=== PATIENT | female | born 1995 | race Caucasian/White ===

== ENCOUNTER 2016-09-18 22:57 | Emergency (ER) | payer MEDICAID ==
[2016-09-19] MEDS ORDERED: CEPHALEXIN 500 MG CAPSULE PO ONE (01:33)
--- NOTE | 2016-09-19 01:38 | ER Document Report ---
ED Skin Rash/Insect Bite/Abscs - General Chief Complaint: Insect Bite Stated Complaint: POSSIBLE SPIDER BITE Time Seen by Provider: 09/19/16 01:18 Mode of Arrival: Ambulatory Information source: Patient Notes: Patient is a 20-year-old female who is deaf who presents to the ER today for possible bug bite to her right wrist. Patient states that she noticed it last night but this morning she woke up and it was worse. She states that it is swollen, red, itchy and painful and that is making pain shoot up her arm past her elbow. She denies any numbness or tingling. TRAVEL OUTSIDE OF THE [place] IN LAST 30 DAYS: No - Related Data Allergies/Adverse Reactions: amoxicillin Allergy (Verified 09/18/16 23:21) Home Medications: Current Home Medications Norethindrone AC-Eth Estradiol [Junel 1.5 mg-30 Mcg Tablet] 1 each PO DAILY 03/27 [History] Past Medical History - General Information source: Patient - Social History Smoking Status: Never Smoker Family History: Reviewed & Not Pertinent Renal/ Medical History: Denies: Hx Peritoneal Dialysis Review of Systems - Review of Systems Constitutional: No symptoms reported EENT: No symptoms reported Cardiovascular: No symptoms reported Respiratory: No symptoms reported Gastrointestinal: No symptoms reported Genitourinary: No symptoms reported Female Genitourinary: No symptoms reported Musculoskeletal: No symptoms reported Skin: See HPI Hematologic/Lymphatic: No symptoms reported Neurological/Psychological: No symptoms reported Physical Exam - Vital signs Vitals: Temp Pulse Resp BP Pulse Ox 98.4 F 97 16 146/97 H 100 09/18/16 23:22 09/18/16 23:22 09/18/16 23:22 09/18/16 23:22 09/18/16 23:22 - Notes Notes: PHYSICAL EXAMINATION: GENERAL: Well-appearing and in no acute distress. HEAD: Atraumatic, normocephalic. EYES: Pupils equal round and reactive to light, extraocular movements intact, sclera anicteric, conjunctiva are normal. NECK: Normal range of motion, supple without lymphadenopathy LUNGS: CTAB and equal. No wheezes rales or rhonchi. HEART: Regular rate and rhythm without murmurs EXTREMITIES: Normal range of motion, no pitting edema. No cyanosis. NEUROLOGICAL: Cranial nerves grossly intact. Normal sensory/motor exams. PSYCH: Normal mood, normal affect. SKIN: Warm, Dry, normal turgor, erythematous area 2 cm in diameter to volar right wrist, tender to palpation, small papule in the center, no drainage, no induration or flucutance Course - Vital Signs Vital signs: Temp Pulse Resp BP Pulse Ox 98.1 F 85 16 129/94 H 99 09/19/16 02:10 09/19/16 02:10 09/19/16 02:10 09/19/16 02:10 09/19/16 02:10 Discharge - Discharge Clinical Impression: Infected insect bite Qualifiers: Encounter type: initial encounter Qualified Code(s): W57.XXXA - Bitten or stung by nonvenomous insect and other nonvenomous arthropods, initial encounter Condition: Stable Disposition: HOME, SELF-CARE Additional Instructions: Return immediately for any new or worsening symptoms. Follow up with primary care provider, call tomorrow to make followup appointment. Prescriptions: Cephalexin Monohydrate [Keflex 500 mg Capsule] 500 mg PO Q6H 7 Days
[2016-09-19 02:34] VITALS: BP 129/94
== END 2016-09-19 02:10 | disposition home or self-care (01) ==
LOC: ER 22:57
DX: S60.861A Insect bite (nonvenomous) of right wrist, initial encounter (principal); W57.XXXA Bitten or stung by nonvenomous insect and other nonvenomous arthropods, initial encounter; H91.90 Unspecified hearing loss, unspecified ear; Z88.0 Allergy status to penicillin
CPT/HCPCS: 99281

== ENCOUNTER 2019-08-24 16:13 | Outpatient (CLI) | payer MEDICARE, OTHER, MEDICAID ==
[2019-08-24 17:04] LABS: AMORPHOUS SEDIMENT,URINE TRACE /HPF; APPEARANCE,URINE CLOUDY; BILIRUBIN,URINE NEGATIVE (NEGATIVE); COLOR,URINE YELLOW; GLUCOSE, URINE NEGATIVE (NEGATIVE); KETONES,URINE NEGATIVE (NEGATIVE); LEUKOCYTE ESTERASE,URINE LARGE (NEGATIVE); NITRITE,URINE NEGATIVE (NEGATIVE); PROTEIN,URINE NEGATIVE (NEGATIVE); URINE SPECIFIC GRAVITY 1.004; UROBILINOGEN,URINE NEGATIVE mg/dL (<2.0)
[2019-08-24 17:05] LABS: ABSOLUTE EOSINOPHILS # (AUTO) 0.1 10^3/uL (0.0-0.6); ABSOLUTE LYMPHOCYTES (AUTO) 2.8 10^3/uL (0.5-4.7); ABSOLUTE MONOCYTES (AUTO) 0.7 10^3/uL (0.1-1.4); ABSOLUTE NEUT (AUTO) 8.6 10^3/uL (1.7-8.2); BASOPHILS % (AUTO) 0.3 % (0-2); HEMATOCRIT 32.9 % (36.0-47.0); HEMOGLOBIN 11.9 g/dL (12.0-15.5); LYMPHOCYTES % (AUTO) 22.7 % (13-45); MEAN CORPUSCULAR HEMOGLOBIN 31.5 pg (27.0-33.4); MEAN CORPUSCULAR HGB CONC 36.1 g/dL (32.0-36.0); MEAN CORPUSCULAR VOLUME 87 fl (80-97); MONOCYTES % (AUTO) 6.1 % (3-13); PLATELET COUNT 203 10^3/uL (150-450); RED BLOOD COUNT 3.78 10^6/uL (3.72-5.28); RED CELL DISTRIBUTION WIDTH 13.1 % (11.5-14.0); SEGMENTED NEUTROPHILS % (AUTO) 69.9 % (42-78); TOTAL CELLS COUNTED % (AUTO) 100 %; WHITE BLOOD COUNT 12.3 10^3/uL (4.0-10.5)
[2019-08-24 17:15] LABS: URINE AMPHETAMINES SCREEN NEGATIVE; URINE BARBITURATES SCREEN NEGATIVE; URINE BENZODIAZEPINES SCREEN NEGATIVE; URINE COCAINE SCREEN NEGATIVE; URINE MARIJUANA (THC) SCREEN NEGATIVE; URINE METHADONE SCREEN NEGATIVE; URINE PHENCYCLIDINE SCREEN NEGATIVE
[2019-08-24 17:18] LABS: ALBUMIN 3.7 g/dL (3.5-5.0); ALKALINE PHOSPHATASE 67 U/L (38-126); ANION GAP 10 (5-19); ASPARTATE AMINO TRANSFERASE 18 U/L (14-36); BILIRUBIN,TOTAL 0.7 mg/dL (0.2-1.3); BLOOD UREA NITROGEN 5 mg/dL (7-20); CALCIUM 9.8 mg/dL (8.4-10.2); CARBON DIOXIDE 17 mmol/L (22-30); CHLORIDE 109 mmol/L (98-107); GLUCOSE 78 mg/dL (75-110); POTASSIUM 3.4 mmol/L (3.6-5.0); TOTAL PROTEIN 6.8 g/dL (6.3-8.2); URIC ACID 4.7 mg/dL (2.5-6.2)
[2019-08-24 17:19] LABS: UR PRO/CREAT RATIO RESULT 0.5 mg/mg (0.0-0.2); URINE CREATININE 38.9 mg/dL (16-327); URINE PROTEIN 20.3 mg/dL (<12)
== END 2019-08-24 18:59 | disposition home or self-care (01) ==
LOC: LC 16:13
PROVIDERS: ATTEND Obstetrics & Gynecology
DX: O16.2 Unspecified maternal hypertension, second trimester (principal); Z3A.26 26 weeks gestation of pregnancy
CPT/HCPCS: 36415; 80053; 80307; 81001; 82570; 83615; 84156; 84550; 85025

== ENCOUNTER 2019-08-28 17:47 | Outpatient (CLI) | payer MEDICARE, OTHER, MEDICAID ==
[2019-08-28 18:47] LABS: APPEARANCE,URINE SLIGHTLY-CLOUDY; BILIRUBIN,URINE NEGATIVE (NEGATIVE); COLOR,URINE YELLOW; GLUCOSE, URINE NEGATIVE (NEGATIVE); KETONES,URINE NEGATIVE (NEGATIVE); LEUKOCYTE ESTERASE,URINE SMALL (NEGATIVE); NITRITE,URINE NEGATIVE (NEGATIVE); PROTEIN,URINE NEGATIVE (NEGATIVE); URINE SPECIFIC GRAVITY 1.004; UROBILINOGEN,URINE NEGATIVE mg/dL (<2.0)
[2019-08-28 18:51] LABS: URINE AMPHETAMINES SCREEN NEGATIVE; URINE BARBITURATES SCREEN NEGATIVE; URINE BENZODIAZEPINES SCREEN NEGATIVE; URINE COCAINE SCREEN NEGATIVE; URINE MARIJUANA (THC) SCREEN NEGATIVE; URINE METHADONE SCREEN NEGATIVE; URINE PHENCYCLIDINE SCREEN NEGATIVE
--- NOTE | 2019-08-28 19:11 | RADIOLOGY REPORT (SQ) ---
EXAM DESCRIPTION: U/S OB LIMITED IMAGES COMPLETED DATE/TIME: 08/28/2019 6:59 pm REASON FOR STUDY: decreased FM [id number] 26 WEEKS GESTATION OF COMPARISON: None. TECHNIQUE: Limited transabdominal grayscale ultrasound for evaluation of specific requested obstetri tomas parameters. LIMITATIONS: None. FINDINGS: EGA: 27 week 0 day. KASHIF: 11/27/2019. EFW: 1029 g. PERCENTILE: 51%. CERVICAL LENGTH: 3.9 cm. Closed. EDU: 8.2 cm. FHR: 135 beats per minute. PRESENTATION: Breech. PLACENTA: Anterior. No evidence of abruption. ANATOMY: Not assessed OTHER: No other significant findings. IMPRESSION: LIMITED OBSTETRICAL ULTRASOUND WITH MEASURED PARAMETERS DELINEATED ABOVE. OLIGOHYDRAMNIOS. NO EVIDENCE OF PLACENTAL ABRUPTION. Trimester of : Second trimester - 13 weeks 1 day to 27 weeks 6 days. TECHNICAL DOCUMENTATION: JOB ID: [id number] 2010 [employer]- All Rights Reserved Reading location - IP/workstation name: [email or web address]
== END 2019-08-28 20:55 | disposition home or self-care (01) ==
LOC: LC 17:47
PROVIDERS: ATTEND Obstetrics & Gynecology Gynecology
DX: O36.8120 Decreased fetal movements, second trimester, not applicable or unspecified (principal); Z3A.26 26 weeks gestation of pregnancy
CPT/HCPCS: 76815; 80307; 81001

== ENCOUNTER 2019-09-19 16:31 | Outpatient (CLI) | payer OTHER, MEDICARE, MEDICAID ==
[2019-09-19 19:05] LABS: APPEARANCE,URINE SLIGHTLY-CLOUDY; BILIRUBIN,URINE NEGATIVE (NEGATIVE); COLOR,URINE YELLOW; GLUCOSE, URINE NEGATIVE (NEGATIVE); KETONES,URINE NEGATIVE (NEGATIVE); LEUKOCYTE ESTERASE,URINE MODERATE (NEGATIVE); NITRITE,URINE NEGATIVE (NEGATIVE); PROTEIN,URINE NEGATIVE (NEGATIVE); URINE SPECIFIC GRAVITY 1.008; UROBILINOGEN,URINE NEGATIVE mg/dL (<2.0)
[2019-09-19 19:09] LABS: URINE AMPHETAMINES SCREEN NEGATIVE; URINE BARBITURATES SCREEN NEGATIVE; URINE BENZODIAZEPINES SCREEN NEGATIVE; URINE COCAINE SCREEN NEGATIVE; URINE MARIJUANA (THC) SCREEN NEGATIVE; URINE METHADONE SCREEN NEGATIVE; URINE PHENCYCLIDINE SCREEN NEGATIVE
--- NOTE | 2019-09-19 19:16 | RADIOLOGY REPORT (SQ) ---
EXAM DESCRIPTION: U/S OB LIMITED IMAGES COMPLETED DATE/TIME: 09/19/2019 5:56 pm REASON FOR STUDY: fluid, well being. 30 weeks gestation. G1. COMPARISON: None. TECHNIQUE: Limited transabdominal grayscale ultrasound for evaluation of specific requested obstetri tomas parameters. LIMITATIONS: None. FINDINGS: CERVICAL LENGTH: 4.3 cm Closed. EDU: 12.7 cm. FHR: 150 beats per minute. PRESENTATION: Breech PLACENTA: Anterior ANATOMY: Limited anatomic detail due to patient body habitus. OTHER: Corresponds to an ultrasound age of 30 weeks 0 days based on BPD, HC, AC, and FL. Estimated f etal weight is 1447 g +/-200 14 g. there is been expected interval growth. IMPRESSION: LIMITED OBSTETRICAL ULTRASOUND WITH MEASURED PARAMETERS DELINEATED ABOVE. Trimester of : Third trimester - 28 weeks to delivery. TECHNICAL DOCUMENTATION: JOB ID: [id number] 2010 [employer]- All Rights Reserved Reading location - IP/workstation name: [email or web address]
== END 2019-09-19 19:24 | disposition home or self-care (01) ==
LOC: LC 16:31
PROVIDERS: ATTEND Student in an Organized Health Care Education/Training Program
DX: O36.8130 Decreased fetal movements, third trimester, not applicable or unspecified (principal); Z3A.29 29 weeks gestation of pregnancy
CPT/HCPCS: 76815; 80307; 81001; 87086; 87088; 87186

== ENCOUNTER 2019-10-14 11:42 | Outpatient (CLI) | payer OTHER, MEDICARE, MEDICAID ==
[2019-10-14 13:09] LABS: APPEARANCE,URINE CLEAR; BILIRUBIN,URINE NEGATIVE (NEGATIVE); COLOR,URINE YELLOW; GLUCOSE, URINE NEGATIVE (NEGATIVE); KETONES,URINE NEGATIVE (NEGATIVE); LEUKOCYTE ESTERASE,URINE SMALL (NEGATIVE); NITRITE,URINE NEGATIVE (NEGATIVE); PROTEIN,URINE NEGATIVE (NEGATIVE); URINE SPECIFIC GRAVITY 1.004; UROBILINOGEN,URINE NEGATIVE mg/dL (<2.0)
[2019-10-14 13:12] LABS: HEMOGLOBIN 11.4 g/dL (12.0-15.5); MEAN CORPUSCULAR HEMOGLOBIN 32.3 pg (27.0-33.4); MEAN CORPUSCULAR HGB CONC 36.6 g/dL (32.0-36.0); MEAN CORPUSCULAR VOLUME 88 fl (80-97); PLATELET COUNT 157 10^3/uL (150-450); RED BLOOD COUNT 3.52 10^6/uL (3.72-5.28); RED CELL DISTRIBUTION WIDTH 13.7 % (11.5-14.0); WHITE BLOOD COUNT 8.9 10^3/uL (4.0-10.5)
[2019-10-14 13:25] LABS: URINE AMPHETAMINES SCREEN NEGATIVE; URINE BARBITURATES SCREEN NEGATIVE; URINE BENZODIAZEPINES SCREEN NEGATIVE; URINE COCAINE SCREEN NEGATIVE; URINE MARIJUANA (THC) SCREEN NEGATIVE; URINE METHADONE SCREEN NEGATIVE; URINE PHENCYCLIDINE SCREEN NEGATIVE
[2019-10-14 13:29] LABS: UR PRO/CREAT RATIO RESULT 0.5 mg/mg (0.0-0.2); URINE CREATININE 34.6 mg/dL (16-327)
[2019-10-14 13:41] LABS: ALBUMIN 2.9 g/dL (3.5-5.0); ALKALINE PHOSPHATASE 86 U/L (38-126); ANION GAP 8 (5-19); ASPARTATE AMINO TRANSFERASE 18 U/L (14-36); BLOOD UREA NITROGEN 5 mg/dL (7-20); CALCIUM 8.9 mg/dL (8.4-10.2); CARBON DIOXIDE 16 mmol/L (22-30); CHLORIDE 112 mmol/L (98-107); GLUCOSE 117 mg/dL (75-110); POTASSIUM 3.1 mmol/L (3.6-5.0); TOTAL PROTEIN 5.7 g/dL (6.3-8.2); URIC ACID 5.4 mg/dL (2.5-6.2)
--- NOTE | 2019-10-14 14:51 | Non Stress Test Report ---
Non Stress Test Datetime Report Generated by CPN: 10/14/2019 14:51 DEMOGRAPHIC EGA NST: 33.4 INDICATION Indication for Study (NST) Other: PIH workup for elevated BP in office VITAL SIGNS Temperature - NST: 98.8 Pulse - NST: 99 RESP - NST: 20 NBPSYS NST: 128 NBPDIA NST: 78 MONITORING Monitor Explained: Monitor Explained; Test Explained; Patient Verbalized Understanding Monitor Explained Other: pt is deaf and mother served as bb shot packer Time on Monitor: 10/14/2019 12:07 Time off Monitor: 10/14/2019 14:03 NST Duration: 116 NST INTERVENTIONS NST Interventions: PO Hydration Physician Notified NST: K. Beverly, CNM BABY A: [id number] BABY A Movement : Present Contraction Frequency : irritability FHR Baseline : 140 Accelerations : 15X15 Decelerations : None Variability : Moderate 6-25bpm NST Review: Meets Criteria for Reactive NST NST Review and Verified By : B Baidy RN NST Results: Reactive NST REPORT Report Trigger: Send Report
[2019-10-14] MEDS ORDERED: RINGERS SOLUTION,LACTATED 1,000 ML IV ONE (15:28)
== END 2019-10-14 14:20 | disposition home or self-care (01) ==
LOC: LC 11:42
PROVIDERS: ATTEND Obstetrics & Gynecology
DX: O14.93 Unspecified pre-eclampsia, third trimester (principal); O99.89 Other specified diseases and conditions complicating pregnancy, childbirth and the puerperium; H66.92 Otitis media, unspecified, left ear; Z3A.33 33 weeks gestation of pregnancy; Z88.1 Allergy status to other antibiotic agents
CPT/HCPCS: 36415; 80053; 80307; 81001; 82570; 83615; 84156; 84550; 85027

== ENCOUNTER 2019-11-03 11:50 | Inpatient (IN) | payer OTHER, MEDICARE, MEDICAID ==
[2019-11-03 13:00] LABS: APPEARANCE,URINE CLEAR; BILIRUBIN,URINE NEGATIVE (NEGATIVE); COLOR,URINE YELLOW; GLUCOSE, URINE NEGATIVE (NEGATIVE); KETONES,URINE NEGATIVE (NEGATIVE); LEUKOCYTE ESTERASE,URINE TRACE (NEGATIVE); NITRITE,URINE NEGATIVE (NEGATIVE); PROTEIN,URINE NEGATIVE (NEGATIVE); URINE SPECIFIC GRAVITY 1.004; UROBILINOGEN,URINE NEGATIVE mg/dL (<2.0)
[2019-11-03 13:06] LABS: ABSOLUTE EOSINOPHILS # (AUTO) 0.1 10^3/uL (0.0-0.6); ABSOLUTE MONOCYTES (AUTO) 0.8 10^3/uL (0.1-1.4); ABSOLUTE NEUT (AUTO) 8.6 10^3/uL (1.7-8.2); BASOPHILS % (AUTO) 0.2 % (0-2); EOSINOPHILS % (AUTO) 0.8 % (0-6); HEMATOCRIT 34.9 % (36.0-47.0); HEMOGLOBIN 12.5 g/dL (12.0-15.5); LYMPHOCYTES % (AUTO) 17.4 % (13-45); MEAN CORPUSCULAR HEMOGLOBIN 31.4 pg (27.0-33.4); MEAN CORPUSCULAR HGB CONC 35.7 g/dL (32.0-36.0); MEAN CORPUSCULAR VOLUME 88 fl (80-97); MONOCYTES % (AUTO) 6.5 % (3-13); PLATELET COUNT 168 10^3/uL (150-450); RED BLOOD COUNT 3.97 10^6/uL (3.72-5.28); SEGMENTED NEUTROPHILS % (AUTO) 75.1 % (42-78); TOTAL CELLS COUNTED % (AUTO) 100 %; WHITE BLOOD COUNT 11.5 10^3/uL (4.0-10.5)
[2019-11-03 13:24] LABS: URINE AMPHETAMINES SCREEN NEGATIVE; URINE BARBITURATES SCREEN NEGATIVE; URINE BENZODIAZEPINES SCREEN NEGATIVE; URINE COCAINE SCREEN NEGATIVE; URINE MARIJUANA (THC) SCREEN NEGATIVE; URINE METHADONE SCREEN NEGATIVE; URINE PHENCYCLIDINE SCREEN NEGATIVE
[2019-11-03 13:27] LABS: ALBUMIN 3.1 g/dL (3.5-5.0); ALKALINE PHOSPHATASE 107 U/L (38-126); ANION GAP 8 (5-19); ASPARTATE AMINO TRANSFERASE 18 U/L (14-36); BILIRUBIN,TOTAL 1.1 mg/dL (0.2-1.3); BLOOD UREA NITROGEN 4 mg/dL (7-20); CALCIUM 9.7 mg/dL (8.4-10.2); CARBON DIOXIDE 17 mmol/L (22-30); CHLORIDE 111 mmol/L (98-107); GLUCOSE 116 mg/dL (75-110); POTASSIUM 3.2 mmol/L (3.6-5.0); URIC ACID 5.9 mg/dL (2.5-6.2)
[2019-11-03] MEDS ORDERED: BETAMET ACET/BETAMET NA INJ 6 MG/1 ML ONE (14:47)
[2019-11-03] MEDS ORDERED: LABETALOL HCL 200 MG TABLET ONE (14:48)
[2019-11-03] MEDS ORDERED: PRENATAL VITAMIN W DHA CAPSULE PO ONE (17:52)
[2019-11-03] MEDS ORDERED: FERROUS SULFATE 325 MG TABLET PO ONE (17:52)
[2019-11-03] MEDS ORDERED: ASCORBIC ACID 500 MG TABLET PO ONE (18:15)
[2019-11-03] MEDS: LORATADINE 10 MG TABLET PO SCH (18:30)
--- NOTE | 2019-11-03 19:20 | PDOC H&P ---
History of Present Illness Admission Date/PCP: 11/03/19 14:52 MARIS CABRERA MD Patient complains of: Elevated blood pressure at the office: severe range per office staff History of Present Illness: MARIA ESTHER CAIN is a 23 year old female G1 at 36.3 weeks EGA by early US dating who was sent from the office for elevated blood pressure: severe range. She has been diagnosed with mild preeclampsia by mildly elevated blood pressures and 24 urine protein of 498. She reports feeling fine. Reports good FM. No ROSA, CP, SOB, RUQ pain, nausea/vomiting or vision changes. She denies VB or LOF Social History Information Source: Patient Lives with: Family Smoking Status: Never Smoker Electronic Cigarette use?: No Frequency of Alcohol Use: None Drugs: None Family History Family History: Reviewed & Not Pertinent Parental Family History Reviewed: Yes Children Family History Reviewed: Yes Sibling(s) Family History Reviewed.: Yes Medication/Allergy Home Medications: Docusate Sodium [Colace 100 mg Capsule] 1 tab PO DAILY PRN 08/24/19 Pnv,Calcium 72/Iron/Folic Acid [ Plus Tablet] 1 tab PO DAILY 08/24/19 Ascorbic Acid [Vitamin C] 1 cap PO DAILY 09/19/19 Iron 1 cap DAILY 09/19/19 Pantoprazole Sodium [Protonix] 1 cap DAILY 09/19/19 Allergies/Adverse Reactions: amoxicillin Allergy (Verified 11/03/19 12:08) Physical Exam - Physical Exam Vital Signs: Intake & Output 11/02/19 11/03/19 11/04/19 06:59 06:59 06:59 Weight 128.1 kg General appearance: PRESENT: no acute distress, cooperative Ear exam: PRESENT: normal external ear exam Respiratory exam: PRESENT: clear to auscultation ana Cardiovascular exam: PRESENT: RRR, +S1, +S2 Pulses: PRESENT: normal dorsalis pedis pul, +2 pedal pulses bilateral GI/Abdominal exam: PRESENT: normal bowel sounds, soft. ABSENT: distended, guarding, mass, organolmegaly, rebound, tenderness Extremities exam: PRESENT: full ROM, other - no clonus. Reflexes 1/4 bilateral lower extremities.. ABSENT: calf tenderness, clubbing, pedal edema Neurological exam: PRESENT: alert, awake, oriented to person, oriented to place, oriented to time, oriented to situation, CN II-XII grossly intact. ABSENT: motor sensory deficit Psychiatric exam: PRESENT: anxious, appropriate affect Skin exam: PRESENT: dry, intact, warm. ABSENT: cyanosis, rash Result Laboratory Results: 11/03/19 12:55 11/03/19 12:55 11/03/19 11/03/19 11/03/19 12:10 12:55 12:55 WBC 11.5 H RBC 3.97 Hgb 12.5 Hct 34.9 L MCV 88 MCH 31.4 MCHC 35.7 RDW 14.0 Plt Count 168 Seg Neutrophils % 75.1 Sodium 136.0 L Potassium 3.2 L Chloride 111 H Carbon Dioxide 17 L Anion Gap 8 BUN 4 L Creatinine 0.62 Est GFR ( Amer) > 60 Glucose 116 H Uric Acid 5.9 Calcium 9.7 Total Bilirubin 1.1 AST 18 Alkaline Phosphatase 107 Total Protein 6.0 L Albumin 3.1 L Urine Color YELLOW Urine Appearance CLEAR Urine pH 7.0 Ur Specific [place] 1.004 Urine Protein NEGATIVE Urine Glucose (UA) NEGATIVE Urine Ketones NEGATIVE Urine Blood NEGATIVE Urine Nitrite NEGATIVE Ur Leukocyte Esterase TRACE H Urine WBC (Auto) 3 Urine RBC (Auto) 1 Assessment & Plan - Diagnosis (1) Pre-eclampsia Qualifiers: Trimester: third trimester Qualified Code(s): O14.93 - Unspecified pre- eclampsia, third trimester Is this a current diagnosis for this admission?: Yes - Time Time Spent: 30 to 50 Minutes Medications reviewed and adjusted accordingly: Yes Disposition: Elevated blood pressure. Otherwsie stable . - Plan Summary Plan Summary: 23 yo G1 at 36.3 wks EGA with mild preeclampsia, possibly progressing to severe -Admit to LDR -CEFM -Obtain IV access. -VS Q 1 hour. If >160 systolic or >110 diastolic call provider. B/P here is 164/100. WIll begin Labetolol 200mg BID. -Give BMZ x2 -PIH labs ordered and normal. Repeat in am -Since asymptomatic and normal labs, will monitor while steriods given. WIll begin PO antihypertensives and monitor B/P. Begin mag sulfate IV if sustained severe range B/Ps. If sustained severe range b/p then earlier IOL before 37 wks may be necessary. Otherwise will plan on IOL at 37 weeks. -May have regular diet. -Also called out after initial assessment with ear pain on left. She has hx of ear infection this ear and states pain started yesterday. Pain anterior to left ear and deep in ear per patient. Injected capillaries seen on left TM. Cobblestoning seen in back of throat. Will treat with loratidine 10mg daily and antibiotic
[2019-11-03] MEDS: CEFUROXIME 250 MG TABLET PO SCH (21:53)
[2019-11-04 06:53] LABS: ABSOLUTE MONOCYTES (AUTO) 0.7 10^3/uL (0.1-1.4); ABSOLUTE NEUT (AUTO) 10.9 10^3/uL (1.7-8.2); BASOPHILS % (AUTO) 0.1 % (0-2); EOSINOPHILS % (AUTO) 0.1 % (0-6); HEMATOCRIT 34.6 % (36.0-47.0); HEMOGLOBIN 12.1 g/dL (12.0-15.5); LYMPHOCYTES % (AUTO) 14.8 % (13-45); MEAN CORPUSCULAR HEMOGLOBIN 31.2 pg (27.0-33.4); MEAN CORPUSCULAR HGB CONC 35.1 g/dL (32.0-36.0); MEAN CORPUSCULAR VOLUME 89 fl (80-97); MONOCYTES % (AUTO) 5.1 % (3-13); PLATELET COUNT 185 10^3/uL (150-450); RED BLOOD COUNT 3.88 10^6/uL (3.72-5.28); RED CELL DISTRIBUTION WIDTH 14.3 % (11.5-14.0); SEGMENTED NEUTROPHILS % (AUTO) 79.9 % (42-78); TOTAL CELLS COUNTED % (AUTO) 100 %; WHITE BLOOD COUNT 13.6 10^3/uL (4.0-10.5)
[2019-11-04 07:12] LABS: ALBUMIN 3.2 g/dL (3.5-5.0); ALKALINE PHOSPHATASE 113 U/L (38-126); ANION GAP 9 (5-19); ASPARTATE AMINO TRANSFERASE 19 U/L (14-36); BLOOD UREA NITROGEN 7 mg/dL (7-20); CALCIUM 9.6 mg/dL (8.4-10.2); CARBON DIOXIDE 18 mmol/L (22-30); CHLORIDE 109 mmol/L (98-107); GLUCOSE 128 mg/dL (75-110); POTASSIUM 3.6 mmol/L (3.6-5.0); URIC ACID 6.2 mg/dL (2.5-6.2)
--- NOTE | 2019-11-04 09:09 | Non Stress Test Report ---
Non Stress Test Datetime Report Generated by CPN: 11/04/2019 09:09 DEMOGRAPHIC Test Number: 2 EGA NST: 36.4 INDICATION Indication for Study (NST) Other: Pre Eclampcia VITAL SIGNS Temperature - NST: 98.8 Pulse - NST: 116 RESP - NST: 20 NBPSYS NST: 157 NBPDIA NST: 83 MONITORING Monitor Explained: Monitor Explained; Test Explained; Patient Verbalized Understanding Time on Monitor: 11/04/2019 08:38 Time off Monitor: 11/04/2019 09:04 NST Duration: 26 NST INTERVENTIONS NST Interventions: PO Hydration; Reposition Patient Physician Notified NST: Dr. Steven BABY A: [id number] BABY A Movement : Present Contraction Frequency : Irregular FHR Baseline : 135 Accelerations : 15X15 Decelerations : None Variability : Moderate 6-25bpm NST Review: Meets Criteria for Reactive NST NST Review and Verified By : Cindy Pace RN NST Results: Reactive NST REPORT Report Trigger: Send Report
[2019-11-04] MEDS ORDERED: LABETALOL HCL 200 MG TABLET PO SCH (10:00)
[2019-11-04] MEDS ORDERED: LABETALOL HCL 200 MG TABLET ONE (10:00)
[2019-11-04] MEDS: LORATADINE 10 MG TABLET PO SCH (10:11)
[2019-11-04] MEDS: CEFUROXIME 250 MG TABLET PO SCH (10:32)
[2019-11-04 11:45] LABS: HEMOGLOBIN 11.5 g/dL (12.0-15.5); MEAN CORPUSCULAR HEMOGLOBIN 31.2 pg (27.0-33.4); MEAN CORPUSCULAR HGB CONC 34.9 g/dL (32.0-36.0); MEAN CORPUSCULAR VOLUME 90 fl (80-97); PLATELET COUNT 164 10^3/uL (150-450); RED BLOOD COUNT 3.69 10^6/uL (3.72-5.28); WHITE BLOOD COUNT 13.9 10^3/uL (4.0-10.5)
--- NOTE | 2019-11-04 12:55 | Admission Physical ---
Datetime Report Generated by CPN: 11/04/2019 12:54 CURRENT ADMISSION Chief Complaint: Other Chief Complaint Other: Elevated BP in the office, Pre-eclampsia work up Admit Impression : , Intrauterine ; No Active Labor Admit Impression- Other: 36 wks w/ Pre-eclampsia for IOL evaluation Admit Plan: Observation/Evaluation ALLERGIES Medication Allergies: Yes Medication Allergies: amoxicillin (11/03/2019) Latex: No Latex Allergies Food Allergies: none Environmental Allergies: none OBSTETRICAL HISTORY EDC: 11/28/2019 00:00 : 1 Para: 0 Term: 0 : 0 SAB: 0 IAB: 0 Ectopic: 0 Livin Cesareans: 0 VBACs: 0 Multiple Births: 0 Rh Sensitization: No CUCA: No Uterine Anomaly: No Hx Previous C/S: No Hx Loss/Stillborn: No Hx : No Depression/PP Depression: No Post Hemorrhage: No Obstetrical History Comments: G1- current MEDICAL HISTORY Medical History Comments: migraines, spondylolisthesis, gallbladder removal, obesity, bilateral cochlear implant INFECTIOUS HISTORY Gonorrhea: No Genital Herpes: No Chlamydia: No Tuberculosis: No Syphilis: No Hepatitis: No HIV/AIDS Exposure: No Rash or Viral Illness: No HPV: No PHYSICAL EXAM General: Normal HEENT: Normal Neurologic: Normal Thyroid: Normal Heart: Normal Lungs: Normal Breast: Normal Back: Normal Abdomen: Normal Genitourinary Exam: Normal Extremities: Normal DTRs: Normal Pelvic Type: Adequate Vital Signs: Reviewed FETUS A EGA: 36.4 Monitoring: External US Admit Comment: at 36.3 wks w/ Pre-eclampsia, sent over from A office on 11/03/2019 for evaluation if IOL is indicated. Pt is deaf and interpretor was present .FOB also deaf but able to read lips. Betamethasone #1 dose given 11/03/19 and will give second dose today. GBS negative. Dr Harris has seen patient and plan of care has been discussed with them. INFORMED CONSENT Assignment: Kalani Harris MD Signature: with User ID: Lincoln : with User ID: Lincoln
[2019-11-04] MEDS ORDERED: BETAMET ACET/BETAMET NA INJ 6 MG/1 ML ONE (14:19)
[2019-11-04] MEDS ORDERED: BETAMET ACET/BETAMET NA INJ 6 MG/1 ML IM ONE (14:51)
--- NOTE | 2019-11-04 15:01 | PDOC DISCHARGE SUMMARY ---
Impression - Admit/DC Date/PCP Admission Date/Primary Care Provider: 11/04/19 10:55 MARIS CABRERA MD Discharge Date: 11/04/19 - 36 wks, Doing well, s/p Betamethasone x 2. Plan for IOL Thursday night 11/05 - Additional Information Resuscitation Status: Full Code Discharge Diet: As Tolerated Discharge Activity: Balance Activity w/Rest, No Driving, No Lifting Over 10 Pounds Referrals: MARIS CABRERA MD [Primary Care Provider] - Home Medications: Docusate Sodium [Colace 100 mg Capsule] 1 tab PO DAILY PRN 08/24/19 Pnv,Calcium 72/Iron/Folic Acid [ Plus Tablet] 1 tab PO DAILY 08/24/19 Ascorbic Acid [Vitamin C] 1 cap PO DAILY 09/19/19 Iron 1 cap DAILY 09/19/19 Pantoprazole Sodium [Protonix] 1 cap DAILY 09/19/19 Results Laboratory Results: WBC 13.9 10^3/uL (4.0-10.5) H 11/04/19 11:27 RBC 3.69 10^6/uL (3.72-5.28) L 11/04/19 11:27 Hgb 11.5 g/dL (12.0-15.5) L 11/04/19 11:27 Hct 33.0 % (36.0-47.0) L 11/04/19 11:27 MCV 90 fl (80-97) 11/04/19 11:27 MCH 31.2 pg (27.0-33.4) 11/04/19 11:27 MCHC 34.9 g/dL (32.0-36.0) 11/04/19 11:27 RDW 14.0 % (11.5-14.0) 11/04/19 11:27 Plt Count 164 10^3/uL (150-450) 11/04/19 11:27 Lymph % (Auto) 14.8 % (13-45) 11/04/19 06:34 [place] % (Auto) 5.1 % (3-13) 11/04/19 06:34 Eos % (Auto) 0.1 % (0-6) 11/04/19 06:34 Baso % (Auto) 0.1 % (0-2) 11/04/19 06:34 Absolute Neuts (auto) 10.9 10^3/uL (1.7-8.2) H 11/04/19 06:34 Absolute Lymphs (auto) 2.0 10^3/uL (0.5-4.7) 11/04/19 06:34 Absolute Monos (auto) 0.7 10^3/uL (0.1-1.4) 11/04/19 06:34 Absolute Eos (auto) 0.0 10^3/uL (0.0-0.6) 11/04/19 06:34 Absolute Basos (auto) 0.0 10^3/uL (0.0-0.2) 11/04/19 06:34 Seg Neutrophils % 79.9 % (42-78) H 11/04/19 06:34 Sodium 135.7 mmol/L (137-145) L 11/04/19 06:34 Potassium 3.6 mmol/L (3.6-5.0) 11/04/19 06:34 Chloride 109 mmol/L (98-107) H 11/04/19 06:34 Carbon Dioxide 18 mmol/L (22-30) L 11/04/19 06:34 Anion Gap 9 (5-19) 11/04/19 06:34 BUN 7 mg/dL (7-20) 11/04/19 06:34 Creatinine 0.70 mg/dL (0.52-1.25) 11/04/19 06:34 Est GFR ( Amer) > 60 (>60) 11/04/19 06:34 Est GFR (MDRD) Non-Af > 60 (>60) 11/04/19 06:34 Glucose 128 mg/dL (75-110) H 11/04/19 06:34 Lactic Acid 1.9 mmol/L (0.7-2.1) 11/04/19 06:34 Uric Acid 6.2 mg/dL (2.5-6.2) 11/04/19 06:34 Calcium 9.6 mg/dL (8.4-10.2) 11/04/19 06:34 Total Bilirubin 1.0 mg/dL (0.2-1.3) 11/04/19 06:34 Direct Bilirubin 0.0 mg/dL (0.0-0.4) 11/04/19 06:34 Neonat Total Bilirubin Not Reportable 11/04/19 06:34 Neonat Direct Bilirubin Not Reportable 11/04/19 06:34 Neonat Indirect Bili Not Reportable 11/04/19 06:34 AST 19 U/L (14-36) 11/04/19 06:34 ALT 12 U/L (<35) 11/04/19 06:34 Alkaline Phosphatase 113 U/L (38-126) 11/04/19 06:34 Lactate Dehydrogenase 162 U/L (120-246) 11/03/19 12:55 Total Protein 6.0 g/dL (6.3-8.2) L 11/04/19 06:34 Albumin 3.2 g/dL (3.5-5.0) L 11/04/19 06:34 Urine Color YELLOW 11/03/19 12:10 Urine Appearance CLEAR 11/03/19 12:10 Urine pH 7.0 (5.0-9.0) 11/03/19 12:10 Ur Specific [place] 1.004 11/03/19 12:10 Urine Protein NEGATIVE mg/dL (NEGATIVE) 11/03/19 12:10 Urine Glucose (UA) NEGATIVE mg/dL (NEGATIVE) 11/03/19 12:10 Urine Ketones NEGATIVE mg/dL (NEGATIVE) 11/03/19 12:10 Urine Blood NEGATIVE (NEGATIVE) 11/03/19 12:10 Urine Nitrite NEGATIVE (NEGATIVE) 11/03/19 12:10 Urine Bilirubin NEGATIVE (NEGATIVE) 11/03/19 12:10 Urine Urobilinogen NEGATIVE mg/dL (<2.0) 11/03/19 12:10 Ur Leukocyte Esterase TRACE (NEGATIVE) H 11/03/19 12:10 Urine WBC (Auto) 3 /HPF 11/03/19 12:10 Urine RBC (Auto) 1 /HPF 11/03/19 12:10 Urine Bacteria (Auto) TRACE /HPF 11/03/19 12:10 Squamous Epi Cells Auto 2 /HPF 11/03/19 12:10 Urine Mucus (Auto) RARE /LPF 11/03/19 12:10 Urine Ascorbic Acid NEGATIVE (NEGATIVE) 11/03/19 12:10 Urine Opiates Screen NEGATIVE 11/03/19 12:10 Urine Methadone Screen NEGATIVE 11/03/19 12:10 Ur Barbiturates Screen NEGATIVE 11/03/19 12:10 Ur Phencyclidine Scrn NEGATIVE 11/03/19 12:10 Ur Amphetamines Screen NEGATIVE 11/03/19 12:10 U Benzodiazepines Scrn NEGATIVE 11/03/19 12:10 Urine Cocaine Screen NEGATIVE 11/03/19 12:10 U Marijuana (THC) Screen NEGATIVE 11/03/19 12:10 Plan Health Concerns: Pre-eclampsia at 36 wks, BP precautions reviewed Plan of Treatment: return to [facility] on Thursday for cervical ripening Time Spent: Less than 30 Minutes
--- NOTE | 2019-11-04 15:01 | Non Stress Test Report ---
Non Stress Test Datetime Report Generated by CPN: 11/04/2019 15:01 DEMOGRAPHIC EGA NST: 36.4 INDICATION Indication for Study (NST) Other: Steven MD orders VITAL SIGNS Temperature - NST: 98.2 Pulse - NST: 115 RESP - NST: 18 NBPSYS NST: 137 NBPDIA NST: 69 MONITORING Monitor Explained: Monitor Explained; Test Explained; Patient Verbalized Understanding Time on Monitor: 11/04/2019 14:15 Time off Monitor: 11/04/2019 14:38 NST Duration: 23 NST INTERVENTIONS NST Interventions: PO Hydration; Reposition Patient Physician Notified NST: N. Wang, CNM BABY A Movement : Present Contraction Frequency : irritability noted FHR Baseline : 135 Accelerations : 15X15 Decelerations : None Variability : Moderate 6-25bpm NST Review: Meets Criteria for Reactive NST NST Review and Verified By : Cindy Pace RN NST Results: Reactive NST REPORT Report Trigger: Send Report
[2019-11-04] MEDS ORDERED: PANTOPRAZOLE SODIUM 40 MG TABLET.DR PO SCH (17:00)
[2019-11-04] MEDS ORDERED: PRENATAL VITAMIN W DHA CAPSULE PO SCH (18:15)
[2019-11-04] MEDS ORDERED: FERROUS SULFATE 325 MG TABLET PO SCH (18:15)
== END 2019-11-04 15:06 | disposition home or self-care (01) | DRG 998 ==
LOC: LC 11:50 → LR 14:52 → OBSVTOIN 11-04 10:55
PROVIDERS: ADMIT Obstetrics & Gynecology; ATTEND Obstetrics & Gynecology
DX: O14.04 Mild to moderate pre-eclampsia, complicating childbirth (principal); H91.93 Unspecified hearing loss, bilateral; O26.893 Other specified pregnancy related conditions, third trimester; O99.213 Obesity complicating pregnancy, third trimester; Z88.1 Allergy status to other antibiotic agents; Z3A.36 36 weeks gestation of pregnancy
CPT/HCPCS: 36415; 80053; 80307; 81001; 83605; 83615; 84550; 85025; J0702; J3490

== ENCOUNTER 2019-11-06 20:33 | Inpatient (IN) | payer OTHER, MEDICARE, MEDICAID ==
[2019-11-06] MEDS ORDERED: RINGERS SOLUTION,LACTATED 1,000 ML IV PRN (20:43)
[2019-11-06 21:20] LABS: ABSOLUTE EOSINOPHILS # (AUTO) 0.1 10^3/uL (0.0-0.6); ABSOLUTE LYMPHOCYTES (AUTO) 2.8 10^3/uL (0.5-4.7); ABSOLUTE MONOCYTES (AUTO) 1.3 10^3/uL (0.1-1.4); ABSOLUTE NEUT (AUTO) 7.6 10^3/uL (1.7-8.2); BASOPHILS % (AUTO) 0.2 % (0-2); EOSINOPHILS % (AUTO) 0.4 % (0-6); LYMPHOCYTES % (AUTO) 23.4 % (13-45); MEAN CORPUSCULAR HEMOGLOBIN 31.5 pg (27.0-33.4); MEAN CORPUSCULAR HGB CONC 35.4 g/dL (32.0-36.0); MEAN CORPUSCULAR VOLUME 89 fl (80-97); PLATELET COUNT 185 10^3/uL (150-450); RED BLOOD COUNT 3.81 10^6/uL (3.72-5.28); RED CELL DISTRIBUTION WIDTH 14.2 % (11.5-14.0); TOTAL CELLS COUNTED % (AUTO) 100 %; WHITE BLOOD COUNT 11.8 10^3/uL (4.0-10.5)
[2019-11-06] MEDS ORDERED: RINGERS SOLUTION,LACTATED 1,000 ML IV ONE (21:30)
[2019-11-06 21:32] LABS: APPEARANCE,URINE CLEAR; BILIRUBIN,URINE NEGATIVE (NEGATIVE); COLOR,URINE STRAW; GLUCOSE, URINE NEGATIVE (NEGATIVE); KETONES,URINE NEGATIVE (NEGATIVE); LEUKOCYTE ESTERASE,URINE NEGATIVE (NEGATIVE); NITRITE,URINE NEGATIVE (NEGATIVE); PROTEIN,URINE NEGATIVE (NEGATIVE); URINE SPECIFIC GRAVITY 1.002; UROBILINOGEN,URINE NEGATIVE mg/dL (<2.0)
[2019-11-06 21:48] LABS: URINE AMPHETAMINES SCREEN NEGATIVE; URINE BARBITURATES SCREEN NEGATIVE; URINE BENZODIAZEPINES SCREEN NEGATIVE; URINE COCAINE SCREEN NEGATIVE; URINE MARIJUANA (THC) SCREEN NEGATIVE; URINE METHADONE SCREEN NEGATIVE; URINE PHENCYCLIDINE SCREEN NEGATIVE
[2019-11-06] MEDS ORDERED: ZOLPIDEM TARTRATE 5 MG TABLET PO PRN (21:52)
[2019-11-06] MEDS ORDERED: ACETAMINOPHEN 325 MG TABLET PO PRN (21:52)
[2019-11-06] MEDS ORDERED: MAG HYDROX/AL HYDROX/SIMETH SUSP 30 ML UDCUP PO PRN (21:52)
[2019-11-06] MEDS ORDERED: LABETALOL HCL 200 MG TABLET ONE (22:16)
[2019-11-06] MEDS ORDERED: MISOPROSTOL 0.2 MG TABLET ONE (22:16)
[2019-11-06] MEDS ORDERED: OXYTOCIN 10 UNIT/ML VIAL ONE (22:16)
[2019-11-06] MEDS ORDERED: DINOPROSTONE 10 MG VAGINAL INSERT.SR ONE (22:17)
[2019-11-06] MEDS ORDERED: LIDOCAINE 1% INJ-PF (10 MG/ML) 30 ML SDV ONE (22:17)
[2019-11-06] MEDS ORDERED: OXYTOCIN/0.9 % SODIUM CHLORIDE 30 UNIT/500 ML RTUINJ ONE (22:17)
[2019-11-06] MEDS ORDERED: DINOPROSTONE 10 MG VAGINAL INSERT.SR PV ONE (22:30)
[2019-11-06] MEDS ORDERED: CEFUROXIME 500 MG TABLET ONE (22:36)
[2019-11-07] MEDS ORDERED: ZOLPIDEM TARTRATE 5 MG TABLET ONE (00:32)
[2019-11-07] MEDS ORDERED: NALBUPHINE HCL INJ 10 MG/1 ML AMPULE ONE (03:01)
[2019-11-07] MEDS ORDERED: PROMETHAZINE HCL INJ 25 MG/1 ML VIAL ONE (03:01)
--- NOTE | 2019-11-07 06:07 | Admission Physical ---
Datetime Report Generated by CPN: 11/07/2019 06:07 CURRENT ADMISSION Chief Complaint: Signs/Symptoms Gestational HTN Chief Complaint Other: Elevated BP in the office, Pre-eclampsia work up Indication for Induction: PreEclampsia Admit Impression : , Intrauterine Admit Impression- Other: 36 wks w/ Pre-eclampsia for IOL evaluation Admit Plan: Admit to Unit; Initiate Labor Protocol ALLERGIES Medication Allergies: Yes Medication Allergies: amoxicillin (11/03/2019) Latex: No Latex Allergies Food Allergies: none Environmental Allergies: none OBSTETRICAL HISTORY EDC: 11/28/2019 00:00 : 1 Para: 0 Term: 0 : 0 SAB: 0 IAB: 0 Ectopic: 0 Livin Cesareans: 0 VBACs: 0 Multiple Births: 0 Gestational Diabetes: No Rh Sensitization: No Incompetent Cervix: No CUCA: No Infertility: No ART Treatment: No Uterine Anomaly: No IUGR: No Hx Previous C/S: No Macrosomia: No Hx Loss/Stillborn: No PIH: Yes Hx : No Placenta Previa/Abruption: No Depression/PP Depression: No PTL/PROM: No Post Hemorrhage: No Current Procedures: Ultrasound; NST Obstetrical History Comments: G1- current SEE RECORDS Alcohol: No Marijuana : No Cocaine: No Other Illicit Drugs: No Cigarettes: Former Smoker. [id number] MEDICAL HISTORY Diabetes: No Blood Transfusion: No Pulmonary Disease (Asthma, TB): No Breast Disease: No Hypertension: Yes Personal Banker Surgery: No Heart Disease: No Hosp/Surgery: No Autoimmune Disorder: No Anesthetic Complications: No Kidney Disease: No Abnormal Pap Smear: No Neuro/Epilepsy: No Psychiatric Disorders: No Other Medical Diseases: No Hepatitis/Liver Disease: No Significant Family History: No Varicosities/Phlebitis: No Trauma/Violence : No Thyroid Dysfunction: No Medical History Comments: migraines, spondylolisthesis, gallbladder removal, obesity, bilateral cochlear implant, pt states doctors told her she has PCOS INFECTIOUS HISTORY Gonorrhea: No Genital Herpes: No Chlamydia: No Tuberculosis: No Syphilis: No Hepatitis: No HIV/AIDS Exposure: No Rash or Viral Illness: No HPV: No PHYSICAL EXAM General: Normal HEENT: Normal Neurologic: Normal Thyroid: Normal Heart: Normal Lungs: Normal Breast: Deferred Back: Normal Abdomen: Normal Genitourinary Exam: Normal Extremities: Normal DTRs: Normal Pelvic Type: Adequate Vital Signs: Reviewed FETUS A EGA: 37.0 Monitoring: External US Admit Comment: at 36.3 wks w/ Pre-eclampsia, sent over from A office on 11/03/2019 for evaluation if IOL is indicated. Pt is deaf and interpretor was present .FOB also deaf but able to read lips. Betamethasone #1 dose given 11/03/19 and will give second dose today. GBS negative. Dr Harris has seen patient and plan of care has been discussed with them. PLANS FOR LABOR AND DELIVERY Labor and Delivery: None Pain Management: Medications; Epidural Feeding Preference: Both Benefit of Breast Feed Discussed: Yes Circumcision: N/A INFORMED CONSENT Assignment: Kalani Harris MD Signature: with User ID: [email or web address] : with User ID: [email or web address]
[2019-11-07] MEDS ORDERED: LABETALOL HCL 200 MG TABLET ONE (08:32)
[2019-11-07] MEDS: LABETALOL HCL 200 MG TABLET PO SCH ×3 (08:35→21:39)
[2019-11-07 08:52] LABS: HEMATOCRIT 34.9 % (36.0-47.0); MEAN CORPUSCULAR HEMOGLOBIN 30.9 pg (27.0-33.4); MEAN CORPUSCULAR HGB CONC 34.4 g/dL (32.0-36.0); MEAN CORPUSCULAR VOLUME 90 fl (80-97); PLATELET COUNT 167 10^3/uL (150-450); RED BLOOD COUNT 3.87 10^6/uL (3.72-5.28); RED CELL DISTRIBUTION WIDTH 14.3 % (11.5-14.0)
[2019-11-07 09:13] LABS: ALBUMIN 3.3 g/dL (3.5-5.0); ALKALINE PHOSPHATASE 112 U/L (38-126); ANION GAP 7 (5-19); ASPARTATE AMINO TRANSFERASE 20 U/L (14-36); BLOOD UREA NITROGEN 7 mg/dL (7-20); CALCIUM 8.9 mg/dL (8.4-10.2); CARBON DIOXIDE 20 mmol/L (22-30); CHLORIDE 109 mmol/L (98-107); GLUCOSE 100 mg/dL (75-110); POTASSIUM 3.2 mmol/L (3.6-5.0); TOTAL PROTEIN 5.9 g/dL (6.3-8.2); URIC ACID 6.4 mg/dL (2.5-6.2)
[2019-11-07] MEDS ORDERED: BUPIVACAINE HCL 0.25 % INJ/PF (2.5 MG/1 ML) 30 ML VIAL ONE (10:09)
[2019-11-07] MEDS ORDERED: EPHEDRINE SULFATE INJ 50 MG/1 ML AMPULE ONE ×2 (10:09→14:11)
[2019-11-07] MEDS ORDERED: FENTANYL/BUPIVACAINE/NS/PF 300 MCG/150 ML RTUINJ EPI ONE (10:09)
[2019-11-07] MEDS ORDERED: FENTANYL CITRATE INJ/PF 100 MCG/2 ML AMPUL ONE ×2 (10:27→14:11)
[2019-11-07] MEDS: CEFUROXIME 500 MG TABLET PO SCH ×3 (11:45→19:31)
[2019-11-07] MEDS ORDERED: CITRIC ACID/SODIUM CITRATE ORAL SOLN 15 ML UDCUP ONE (14:10)
[2019-11-07] MEDS ORDERED: CEFAZOLIN 1 GM/D5W RTU 2 GM/100 ML RTUPB IV ONE (14:10)
[2019-11-07] MEDS ORDERED: OXYTOCIN 10 UNIT/ML VIAL ONE ×2 (14:11→15:05)
[2019-11-07] MEDS ORDERED: MIDAZOLAM 2 MG/2 ML INJ ONE (14:11)
[2019-11-07] MEDS ORDERED: ACETAMINOPHEN 1,000 MG/100 ML RTUPB IV ONE (14:11)
[2019-11-07] MEDS ORDERED: KETOROLAC TROMETHAMINE INJ/PF 30 MG/1 ML SDV ONE (14:11)
[2019-11-07] MEDS ORDERED: HYDROMORPHONE HCL INJ/PF 2 MG/ML AMPULE ONE (14:12)
[2019-11-07] MEDS ORDERED: LIDOCAINE 2% INJ-PF (20 MG/ML) 10 ML AMPUL ONE (14:12)
[2019-11-07] MEDS ORDERED: ONDANSETRON HCL INJ/PF 4 MG/2 ML SDV ONE (14:12)
[2019-11-07] MEDS ORDERED: CARBOPROST TROMETHAMINE INJ 250 MCG/1 ML AMPULE ONE (14:16)
[2019-11-07] MEDS ORDERED: MISOPROSTOL 0.2 MG TABLET ONE (14:16)
[2019-11-07] MEDS ORDERED: OXYTOCIN/0.9 % SODIUM CHLORIDE 30 UNIT/500 ML RTUINJ ONE (14:16)
[2019-11-07] MEDS ORDERED: CEFAZOLIN SODIUM 2 GM in DEXTROSE 5%-WATER 50 ML IV PRN (14:17)
[2019-11-07] MEDS ORDERED: MEPERIDINE HCL/PF INJ 25 MG/1 ML DISP.SYRIN IV PRN (15:17)
[2019-11-07] MEDS ORDERED: PROMETHAZINE HCL INJ 25 MG/1 ML VIAL IV PRN ×2 (15:17→16:12)
[2019-11-07] MEDS ORDERED: MORPHINE SULFATE 10 MG/ML INJ IV PRN ×2 (15:17→16:12)
[2019-11-07] MEDS ORDERED: ONDANSETRON HCL INJ/PF 4 MG/2 ML SDV IV PRN (15:17)
[2019-11-07] MEDS ORDERED: DIPHENHYDRAMINE HCL 50 MG/ML VIAL IV PRN (15:17)
[2019-11-07] MEDS ORDERED: FENTANYL CITRATE INJ/PF 100 MCG/2 ML AMPUL IV PRN ×3 (15:17)
[2019-11-07] MEDS ORDERED: OXYCODONE-ACETAMINOPHEN 5-325 MG TABLET PO PRN ×3 (15:17→16:12)
[2019-11-07] MEDS ORDERED: PHENYLEPHRINE HCL INJ/PF 10 MG/1 ML SDV ONE (15:56)
[2019-11-07] MEDS ORDERED: ACETAMINOPHEN 325 MG TABLET PO PRN (16:12)
[2019-11-07] MEDS ORDERED: OXYTOCIN/0.9 % SODIUM CHLORIDE 30 UNIT/500 ML RTUINJ IV PRN (16:12)
[2019-11-07] MEDS ORDERED: RINGERS SOLUTION,LACTATED 1,000 ML IV PRN (16:12)
[2019-11-07] MEDS ORDERED: MEASLES,MUMPS&RUBELLA VACC/PF 0.5 ML VIAL SUBCUT PRN (16:12)
[2019-11-07] MEDS ORDERED: SIMETHICONE 80 MG TAB.CHEW PO PRN (16:12)
[2019-11-07] MEDS ORDERED: ACETAMINOPHEN 1,000 MG/100 ML RTUPB IV PRN (16:12)
[2019-11-07] MEDS ORDERED: DIPH/PERTUSS(ACELL)/TETANUS VAC/PF 0.5 ML SYR (>=10YO) IM PRN (16:12)
[2019-11-07] MEDS ORDERED: HYDRALAZINE HCL INJ/PF 20 MG/1 ML SDV IV ONE (16:21)
[2019-11-07] MEDS ORDERED: HYDRALAZINE HCL INJ/PF 20 MG/1 ML SDV ONE (16:23)
--- NOTE | 2019-11-07 16:54 | Operative Report ---
Operative Report DATE OF SURGERY: 11/07/19 PREOPERATIVE DIAGNOSIS: IUP at 37 weeks and 0 days, preeclampsia, nonreassuring heart tones, persistent category 2 strip POSTOPERATIVE DIAGNOSIS: Same OPERATION: Primary low transverse hysterotomy section SURGEON: TARUN URBAN ANESTHESIA: Epidural TISSUE REMOVED OR ALTERED: Placenta COMPLICATIONS: None ESTIMATED BLOOD LOSS: 1200 cc INTRAOPERATIVE FINDINGS: Female cephalic presentation, APGARS 5 and 8. nuchal cord x 1. Dark blood behind the placenta suggestive of possibly an abruption beginning PROCEDURE: PROCEDURE IN DETAIL: The patient was taken to the operating room, prepared and draped in a normal sterile fashion in a supine position with a leftward tilt. A transverse skin incision was made with a scalpel and carried through to the underlying layer of fascia with the same scalpel. The fascia was excised in the midline and extended laterally with [place]. The fascia was then dissected from the rectus muscle sharply with [place] and the rectus muscle was divided and the peritoneal cavity was entered sharply with the same Metzenbaum. With good visualization of the bladder and the uterus the bladder blade was inserted. The hysterotomy was nicked with a scalpel and extended laterally with surgeon finger fraction. The infant was then delivered atraumatically. The nuchal cord was reduced. the nose and mouth were suctioned with a suction bulb, the cord was clamped and cut and handed off to awaiting pediatricians. Cord blood was collected. The placenta was removed manually with the above findings noted . the uterus was exteriorized and cleared of clots and debris. The hysterotomy was closed with 0 Monocryl in a running, locked fashion. A second layer of the same suture was used to imbricate to ensure hemostasis. The uterus was injected with 20 mg of Pitocin IM secondary to uterine atony . the uterus was returned to the abdomen and peritoneal cavity was cleared of clots and debris. The rectus muscle and peritoneum were repaired with mattress stitch of 2-0 Chromic. Freighter vessels were ligated with remaining 2-0 chromic on the rectus muscle. the fascia was closed with 0-Vicryl. The subcutaneous layer was closed with plain catgut and the skin was closed with 4-0 Vicryl. The patient tolerated the procedure well. Sponge, lap, and needle counts correct x2 and the patient was taken to recovery in stable condition.
[2019-11-07] MEDS ORDERED: OXYCODONE-ACETAMINOPHEN 5-325 MG TABLET ONE (17:07)
[2019-11-07] MEDS: DOCUSATE SODIUM 100 MG CAPSULE PO SCH (19:31)
[2019-11-07] MEDS: KETOROLAC TROMETHAMINE INJ/PF 30 MG/1 ML SDV IV SCH (21:42)
[2019-11-08 00:18] LABS: HEMATOCRIT 26.8 % (36.0-47.0); MEAN CORPUSCULAR HEMOGLOBIN 31.3 pg (27.0-33.4); MEAN CORPUSCULAR HGB CONC 34.4 g/dL (32.0-36.0); MEAN CORPUSCULAR VOLUME 91 fl (80-97); PLATELET COUNT 156 10^3/uL (150-450); RED BLOOD COUNT 2.95 10^6/uL (3.72-5.28); WHITE BLOOD COUNT 15.8 10^3/uL (4.0-10.5)
[2019-11-08 00:27] LABS: HEMOGLOBIN 9.2 g/dL (12.0-15.5)
[2019-11-08] MEDS: KETOROLAC TROMETHAMINE INJ/PF 30 MG/1 ML SDV IV SCH (05:13)
[2019-11-08 06:49] LABS: HEMATOCRIT 22.8 % (36.0-47.0); MEAN CORPUSCULAR HGB CONC 34.6 g/dL (32.0-36.0); MEAN CORPUSCULAR VOLUME 90 fl (80-97); PLATELET COUNT 140 10^3/uL (150-450); RED BLOOD COUNT 2.54 10^6/uL (3.72-5.28); RED CELL DISTRIBUTION WIDTH 14.3 % (11.5-14.0); WHITE BLOOD COUNT 11.7 10^3/uL (4.0-10.5)
[2019-11-08 06:57] LABS: HEMOGLOBIN 7.9 g/dL (12.0-15.5)
--- NOTE | 2019-11-08 08:18 | PDOC PROGRESS REPORT ---
Subjective Progress Note for:: 11/08/19 Subjective:: doing well. normal postoperative pain. she denies dizziness, blurry vision or other preE symptoms. discussed with patient regarding her decreased Hgb which I was expecting due to her QBL at her c/section. Patient is asymptomoatic and would like to see how she feels today as she starts moving more to decide if she would have blood transfusion. She is agreeable to starting iron and vitamin C. Reason For Visit: , PRE-CLAMPSIA, NONREASSURING HEART Physical Exam - Physical Exam Vital Signs: Temp Pulse Resp BP Pulse Ox 98.6 F 100 16 128/67 H 98 11/08/19 07:56 11/08/19 07:56 11/08/19 07:56 11/08/19 07:56 11/08/19 07:56 Intake & Output 11/07/19 11/08/19 11/09/19 06:59 06:59 06:59 Output Total 1350 Balance -1350 Weight 130.4 kg General appearance: PRESENT: no acute distress, cooperative GI/Abdominal exam: PRESENT: soft, tenderness - appropriate pain for post operative period. dressing is c/d/intact with no erythema or edema Result Laboratory Results: 11/08/19 06:28 11/07/19 08:42 11/07/19 11/07/19 11/07/19 08:42 08:42 20:04 WBC 16.0 H 15.8 H RBC 3.87 2.95 L Hgb 12.0 9.2 L D Hct 34.9 L 26.8 L MCV 90 91 MCH 30.9 31.3 MCHC 34.4 34.4 RDW 14.3 H 14.0 Plt Count 167 156 Sodium 135.8 L Potassium 3.2 L Chloride 109 H Carbon Dioxide 20 L Anion Gap 7 BUN 7 Creatinine 0.53 Est GFR ( Amer) > 60 Glucose 100 Uric Acid 6.4 H Calcium 8.9 Total Bilirubin 1.0 AST 20 Alkaline Phosphatase 112 Total Protein 5.9 L Albumin 3.3 L 11/08/19 06:28 WBC 11.7 H RBC 2.54 L Hgb 7.9 L Hct 22.8 L MCV 90 MCH 31.0 MCHC 34.6 RDW 14.3 H Plt Count 140 L Sodium Potassium Chloride Carbon Dioxide Anion Gap BUN Creatinine Est GFR ( Amer) Glucose Uric Acid Calcium Total Bilirubin AST Alkaline Phosphatase Total Protein Albumin Assessment & Plan - Diagnosis (1) delivery delivered Is this a current diagnosis for this admission?: Yes (2) Non-reassuring electronic monitoring tracing Is this a current diagnosis for this admission?: Yes (3) Deafness Qualifiers: Laterality: bilateral Qualified Code(s): H91.93 - Unspecified hearing loss, bilateral Is this a current diagnosis for this admission?: Yes (4) Pre-eclampsia Qualifiers: Trimester: third trimester Is this a current diagnosis for this admission?: Yes (5) Anemia Qualifiers: Other causes of anemia: acute posthemorrhagic Is this a current diagnosis for this admission?: Yes - Time Time Spent with patient: Less than 15 minutes Smoking Cessation Education: over 10 minutes Medications reviewed and adjusted accordingly: Yes Anticipated discharge: Home Within: within 24 hours - Inpatient Certification Based on my medical assessment, after consideration of the patient's comorbiditi es, presenting symptoms, or acuity I expect that the services needed warrant INPATIENT care.: Yes I certify that my determination is in accordance with my understanding of [facility]'s requirements for reasonable and necessary INPATIENT services [42 CFR 412.3e].: Yes Medical Necessity: Need Close Monitoring Due to Risk of Patient Decompensation, Need for Pain Control - Plan Summary Plan Summary: interpretor to be brought in for rounds and discussion. plan for patient to go home in morning if doing well. she has been insracted to contact nurse and provider if she becomes more symptomatic with her anemia
[2019-11-08] MEDS: OXYCODONE-ACETAMINOPHEN 5-325 MG TABLET PO PRN ×2 (08:41→18:51)
[2019-11-08] MEDS: DOCUSATE SODIUM 100 MG CAPSULE PO SCH ×2 (09:39→18:50)
[2019-11-08] MEDS: CEFUROXIME 500 MG TABLET PO SCH ×2 (09:39→18:50)
[2019-11-08] MEDS: PRENATAL VITAMIN W DHA CAPSULE PO SCH (09:39)
[2019-11-08] MEDS: LABETALOL HCL 200 MG TABLET PO SCH ×2 (09:39→22:30)
[2019-11-08] MEDS: ASCORBIC ACID 500 MG TABLET PO SCH (09:39)
[2019-11-08] MEDS: FERROUS SULFATE 325 MG TABLET PO SCH ×2 (09:39→18:50)
[2019-11-08] MEDS: IBUPROFEN 800 MG TABLET PO SCH ×2 (12:36→18:50)
[2019-11-09] MEDS: IBUPROFEN 800 MG TABLET PO SCH ×3 (00:08→11:05)
--- NOTE | 2019-11-09 07:44 | Delivery Summary ---
Del Sum A-C Datetime Report Generated by CPN: 11/09/2019 07:44 DELIVERY PERSONNEL DELIVERY PERSONNEL: [id number] Delivery Doctor:: Kalani Harris MD WOOD ROOM SUPERVISOR:: Felicia Bashir WOOD ROOM SUPERVISOR Diesel Inspector:: Chelsea Graff RN Neonatal Nurse Practitioner:: PAVEL Goldberg Hide Shaker/STUDIO DATA ANALYST: Mabel George CST Hide Shaker/STUDIO DATA ANALYST: Meghan Andrews CST Additional Personnel: : Penny Centeno RN MATERNAL INFORMATION Delivery Anesthesia: Epidural Medications During Delivery: Cytotec Hemabate IM Pitocin Medications After Delivery: Pitocin Bolus-Please Comment; Pitocin 30 Units in 500ml NS/D5W Meds After Delivery Comment: See Anesthesia record LABOR SUMMARY EDC: 11/28/2019 00:00 No. Babies in Womb: 1 Attempted: No Labor Anesthesia: Epidural LABOR INFORMATION Reason for Induction: Pre-Eclampsia Cervical Ripening Agents: Cervidil Cervical Ripening Agents: Cervidil Oxytocin: Induction Group B Beta Strep: negative Antibiotics # of Doses: n/a Steroids Given: Full Course; > 24 Hours before Delivery Reason Steroids Not Administered: Not Applicable MEMBRANES Membranes Rupture Method: Artificial Rupture of Membranes: 11/07/2019 11:28 Length of Rupture (hr): 3.47 Amniotic Fluid Color: Clear Amniotic Fluid Amount: Scant Amniotic Fluid Odor: None STAGES OF LABOR Stage 3 hr: 0 Stage 3 min: 2 VAGINAL DELIVERY Episiotomy: None Laceration #1: None Laceration Extension #1: N/A Laceration Repair: Not Applicable Sponge Count Correct: N/A Sharps Count Correct: N/A CSECTION DELIVERY Primary Indication: Nonreassuring Status CSection Urgency: Non-Scheduled CSection Incidence: Primary Labor: Labor Elective: Elective CSection Incision: Lower Uterine Transverse BABY A INFORMATION Delivery Date/Time: 11/07/2019 14:56 Method of Delivery: Nurse Controlled Delivery: No Born in Route : No : N/A Forceps: N/A Vacuum Extraction: N/A Shoulder Dystocia : No PRESENTATION/POSITION BABY A Presentation: Cephalic Cephalic Presentation: Vertex Vertex Position: n/a Breech Presentation: N/A PLACENTA INFORMATION BABY A Placenta Delivery Time : 11/07/2019 14:58 Placenta Method of Delivery: Manual Removal Placenta Status: Delivered SCORES BABY A Heart Rate 1 min: >100 bpm Resp Effort 1 min: Slow, Irregular Reflex Irritability 1 min: Grimace Muscle Tone 1 min: Some Flexion of Extremities Color 1 min: Blue/Pale Resuscitation Effort 1 min: Tactile Stimulation SCORE 1 MIN: 5 Heart Rate 5 min: >100 bpm Resp Effort 5 min: Good Cry Reflex Irritability 5 min: Cough or Sneeze or Pulls Away Muscle Tone 5 min: Some Flexion of Extremities Color 5 min: Body Bowlegs, Extremities Blue Resuscitation Effort 5 min: Tactile Stimulation; Oxygen; PPV/NCPAP SCORE 5 MIN: 8 INFANT INFORMATION BABY A Gestational Age at Delivery: 37.0 Gestational Status: Early Term- 37- 38.6 Weeks Outcome : Liveborn Infant Condition : Stable Infant Sex: Female IDENTIFICATION BABY A Infant Verification Date/Time: 11/07/2019 15:49 ID Band Number: [id number] Mother's Name Verified: Yes RN Verifying : Ankita Gardner RNC Additional Verifying Personnel: Joselyn Jimenez RN WEIGHT/LENGTH BABY A Birthweight (gm): 3280 Weight (lb): 7 Weight (oz): 4 Length (in): 20.50 Infant Length (cm): 52.07 CORD INFORMATION BABY A No. Cord Vessels: 3 Nuchal Cord : Around Neck x1, Loose Cord Blood Taken: Yes-For Eval (Mom's Blood Type - or O+) Infant Suction: Mouth ASSESSMENT BABY A Complications: Multiple Late Decels Physical Findings- Other: see nursery record Immunochemist/ALS Called : No Infant Care By: Eric Summers [employer]ER Transferred To: Nursery BABY B INFORMATION : N/A
[2019-11-09] MEDS: LABETALOL HCL 200 MG TABLET PO SCH (10:01)
[2019-11-09] MEDS: DOCUSATE SODIUM 100 MG CAPSULE PO SCH (10:01)
[2019-11-09] MEDS: CEFUROXIME 500 MG TABLET PO SCH (10:01)
[2019-11-09] MEDS: ASCORBIC ACID 500 MG TABLET PO SCH (10:01)
[2019-11-09] MEDS: PRENATAL VITAMIN W DHA CAPSULE PO SCH (10:01)
[2019-11-09] MEDS: FERROUS SULFATE 325 MG TABLET PO SCH (10:02)
[2019-11-09] MEDS: OXYCODONE-ACETAMINOPHEN 5-325 MG TABLET PO PRN (11:05)
--- NOTE | 2019-11-09 11:38 | PDOC PROGRESS REPORT ---
Subjective-OB Progress Note for:: 11/09/19 Subjective: Doing well, interpreter translator at BS as well as mother and hsb, denies pain, walking, eating , bottle feeding, Physical Exam (OB) Vital Signs: Temp Pulse Resp BP Pulse Ox 98.5 F 103 H 18 138/72 H 100 11/09/19 07:25 11/09/19 07:25 11/09/19 07:25 11/09/19 07:25 11/09/19 07:25 Intake & Output 11/08/19 11/09/19 11/10/19 06:59 06:59 06:59 Intake Total 450 Output Total 1350 300 Balance -1350 -300 450 - PIH/Pre-Eclampsia DTR's: 1 + Clonus: Negative Headache: Absent Epigastric Pain: No Visual Changes: No - Dressing Removed: Yes Incision: Dressing Closure Type: op site - Lochia Lochia Amount: Scant < 10 ml Lochia Color: Rubra/Red - Abdomen Description: Soft Hernia Present: No Fundal Description: Firm, Midline Fundal Height: u/u - u/2 > 4/u*- Describe: n/a Objective-Diagnostic Laboratory: 11/08/19 06:28 11/07/19 08:42 Assessment and Plan(PN) - Assessment and Plan (1) Anemia Qualifiers: Other causes of anemia: acute posthemorrhagic Is this a current diagnosis for this admission?: Yes (2) Non-reassuring electronic monitoring tracing Is this a current diagnosis for this admission?: Yes (3) delivery delivered Is this a current diagnosis for this admission?: Yes (4) Deafness Qualifiers: Laterality: bilateral Qualified Code(s): H91.93 - Unspecified hearing loss, bilateral Is this a current diagnosis for this admission?: Yes (5) Pre-eclampsia Qualifiers: Trimester: third trimester Is this a current diagnosis for this admission?: Yes - Time Spent with Patient Time with patient: Less than 15 minutes Medications reviewed and adjusted accordingly: Yes - Disposition Anticipated Discharge: Home Within: within 24 hours
--- NOTE | 2019-11-09 11:50 | PDOC DISCHARGE SUMMARY ---
Impression - Admit/DC Date/PCP Admission Date/Primary Care Provider: 11/06/19 20:33 TARUN URBAN MD Discharge Date: 11/09/19 - Discharge Diagnosis (1) Anemia Is this a current diagnosis for this admission?: Yes (2) Non-reassuring electronic monitoring tracing Is this a current diagnosis for this admission?: Yes (3) delivery delivered Is this a current diagnosis for this admission?: Yes (4) Deafness Is this a current diagnosis for this admission?: Yes (5) Pre-eclampsia Is this a current diagnosis for this admission?: Yes - Additional Information Resuscitation Status: Full Code Discharge Diet: As Tolerated Referrals: TARUN URBAN MD [Primary Care Provider] - 11/14/19 1:30 pm ([facility] 1 week) Prescriptions: Oxycodone HCl/Acetaminophen [Percocet 5-325 mg Tablet] 1 tab PO Q4HP PRN #20 tablet PRN Reason: Ferrous Sulfate [Feosol 325 mg Tablet] 325 mg PO BID #60 tablet Ibuprofen [Motrin 800 mg Tablet] 800 mg PO Q6 #30 tablet Labetalol HCl [Normodyne 200 mg Tablet] 200 mg PO Q12 #60 tablet Home Medications: Pnv,Calcium 72/Iron/Folic Acid [ Plus Tablet] 1 tab PO DAILY 08/24/19 Iron 1 cap DAILY 09/19/19 Pantoprazole Sodium [Protonix] 1 cap DAILY 09/19/19 Labetalol HCl [Normodyne 200 mg Tablet] 200 mg PO Q12 #60 tablet 11/04/19 Loratadine 10 mg PO DAILY #30 tab.rapdis 11/04/19 Ferrous Sulfate [Feosol 325 mg Tablet] 325 mg PO BID #60 tablet 11/09/19 Ibuprofen [Motrin 800 mg Tablet] 800 mg PO Q6 #30 tablet 11/09/19 Labetalol HCl [Normodyne 200 mg Tablet] 200 mg PO Q12 #60 tablet 11/09/19 Oxycodone HCl/Acetaminophen [Percocet 5-325 mg Tablet] 1 tab PO Q4HP PRN #20 tablet 11/09/19 HPI Gestational Age: 37.1 Reason(s) for Admission: Induction of Labor Admission Note: Pre-E Procedures: NST, Ultrasound Intrapartum Procedure(s): : Low Cervical, Transverse Intrapartum Procedure Note: multiple lates, PP hemorrhage Hospital Course Hospital Course: no complications routine post op, anemis Results Laboratory Results: WBC 11.7 10^3/uL (4.0-10.5) H 11/08/19 06:28 RBC 2.54 10^6/uL (3.72-5.28) L 11/08/19 06:28 Hgb 7.9 g/dL (12.0-15.5) L 11/08/19 06:28 Hct 22.8 % (36.0-47.0) L 11/08/19 06:28 MCV 90 fl (80-97) 11/08/19 06: MCH 31.0 pg (27.0-33.4) 11/08/19 06: MCHC 34.6 g/dL (32.0-36.0) 11/08/19 06: RDW 14.3 % (11.5-14.0) H 11/08/19 06:28 Plt Count 140 10^3/uL (150-450) L 11/08/19 06: Lymph % (Auto) 23.4 % (13-45) 11/06/19 21:05 Citrus % (Auto) 11.0 % (3-13) 11/06/19 21:05 Eos % (Auto) 0.4 % (0-6) 11/06/19 21:05 Baso % (Auto) 0.2 % (0-2) 11/06/19 21:05 Absolute Neuts (auto) 7.6 10^3/uL (1.7-8.2) 11/06/19 21:05 Absolute Lymphs (auto) 2.8 10^3/uL (0.5-4.7) 11/06/19 21:05 Absolute Monos (auto) 1.3 10^3/uL (0.1-1.4) 11/06/19 21:05 Absolute Eos (auto) 0.1 10^3/uL (0.0-0.6) 11/06/19 21:05 Absolute Basos (auto) 0.0 10^3/uL (0.0-0.2) 11/06/19 21:05 Seg Neutrophils % 65.0 % (42-78) 11/06/19 21:05 Sodium 135.8 mmol/L (137-145) L 11/07/19 08:42 Potassium 3.2 mmol/L (3.6-5.0) L 11/07/19 08:42 Chloride 109 mmol/L (98-107) H 11/07/19 08:42 Carbon Dioxide 20 mmol/L (22-30) L 11/07/19 08:42 Anion Gap 7 (5-19) 11/07/19 08:42 BUN 7 mg/dL (7-20) 11/07/19 08:42 Creatinine 0.53 mg/dL (0.52-1.25) 11/07/19 08:42 Est GFR ( Amer) > 60 (>60) 11/07/19 08:42 Est GFR (MDRD) Non-Af > 60 (>60) 11/07/19 08:42 Glucose 100 mg/dL (75-110) 11/07/19 08:42 Uric Acid 6.4 mg/dL (2.5-6.2) H 11/07/19 08:42 Calcium 8.9 mg/dL (8.4-10.2) 11/07/19 08:42 Total Bilirubin 1.0 mg/dL (0.2-1.3) 11/07/19 08:42 Direct Bilirubin 0.0 mg/dL (0.0-0.4) 11/07/19 08:42 Neonat Total Bilirubin Not Reportable 11/07/19 08:42 Neonat Direct Bilirubin Not Reportable 11/07/19 08:42 Neonat Indirect Bili Not Reportable 11/07/19 08:42 AST 20 U/L (14-36) 11/07/19 08:42 ALT 11 U/L (<35) 11/07/19 08:42 Alkaline Phosphatase 112 U/L (38-126) 11/07/19 08:42 Lactate Dehydrogenase 187 U/L (120-246) 11/07/19 08:42 Total Protein 5.9 g/dL (6.3-8.2) L 11/07/19 08:42 Albumin 3.3 g/dL (3.5-5.0) L 11/07/19 08:42 Urine Color STRAW 11/06/19 20:51 Urine Appearance CLEAR 11/06/19 20:51 Urine pH 8.0 (5.0-9.0) 11/06/19 20:51 Ur Specific [place] 1.002 11/06/19 20:51 Urine Protein NEGATIVE mg/dL (NEGATIVE) 11/06/19 20:51 Urine Glucose (UA) NEGATIVE mg/dL (NEGATIVE) 11/06/19 20:51 Urine Ketones NEGATIVE mg/dL (NEGATIVE) 11/06/19 20:51 Urine Blood NEGATIVE (NEGATIVE) 11/06/19 20:51 Urine Nitrite NEGATIVE (NEGATIVE) 11/06/19 20:51 Urine Bilirubin NEGATIVE (NEGATIVE) 11/06/19 20:51 Urine Urobilinogen NEGATIVE mg/dL (<2.0) 11/06/19 20:51 Ur Leukocyte Esterase NEGATIVE (NEGATIVE) 11/06/19 20:51 Urine Ascorbic Acid NEGATIVE (NEGATIVE) 11/06/19 20:51 Urine Opiates Screen NEGATIVE 11/06/19 20:51 Urine Methadone Screen NEGATIVE 11/06/19 20:51 Ur Barbiturates Screen NEGATIVE 11/06/19 20:51 Ur Phencyclidine Scrn NEGATIVE 11/06/19 20:51 Ur Amphetamines Screen NEGATIVE 11/06/19 20:51 U Benzodiazepines Scrn NEGATIVE 11/06/19 20:51 Urine Cocaine Screen NEGATIVE 11/06/19 20:51 U Marijuana (THC) Screen NEGATIVE 11/06/19 20:51 RPR NONREACTIVE (NONREACTIVE) 11/06/19 21:05 Blood Type O POSITIVE 11/06/19 21:05 Antibody Screen NEGATIVE 11/06/19 21:05 Plan Health Concerns: anemia, post op pain, deaf Plan of Treatment: discharge home, pain meds, iron, rev S&S to report and discharge summary with splunk dashboard developer in room Goals: no complications, Time Spent: Less than 30 Minutes
[2019-11-09 15:24] VITALS: BP 125/69
== END 2019-11-09 18:01 | disposition home or self-care (01) | DRG 787 ==
LOC: LR 20:33 → 2N 11-07 18:00
PROVIDERS: ADMIT Obstetrics & Gynecology Gynecology; ATTEND Obstetrics & Gynecology Gynecology
PROC: 10D00Z1 Extraction of Products of Conception, Low, Open Approach (ICD-10-PCS; principal; 2019-11-07)
PROC: 3E033VJ Introduction of Other Hormone into Peripheral Vein, Percutaneous Approach (ICD-10-PCS; 2019-11-07)
DX: O14.04 Mild to moderate pre-eclampsia, complicating childbirth (principal); D62 Acute posthemorrhagic anemia; O76 Abnormality in fetal heart rate and rhythm complicating labor and delivery; O69.81X0 Labor and delivery complicated by cord around neck, without compression, not applicable or unspecified; H91.93 Unspecified hearing loss, bilateral; O90.81 Anemia of the puerperium; Z96.21 Cochlear implant status; Z79.899 Other long term (current) drug therapy; Z3A.37 37 weeks gestation of pregnancy; Z37.0 Single live birth; Z88.1 Allergy status to other antibiotic agents; Z87.891 Personal history of nicotine dependence
CPT/HCPCS: 1967; 1968; 36415; 80053; 80307; 81005; 83615; 84550; 85025; 85027; 86592; 86850; 86900; 86901; 88307; 94760; 94799; 99140; C1758; J0131; J0360; J0690; J1170; J1885; J2250; J2270; J2300; J2370; J2405; J2550; J2590; J3010; J3490